=== PATIENT | female | born 1980 | race Caucasian/White ===

== ENCOUNTER 2017-10-30 14:23 | Emergency (ER) | payer SELFPAY ==
[~2017-10-30] VITALS: Ht 175.3 cm; Wt 72.6 kg
[2017-10-30] MEDS ORDERED: TRAMADOL HCL 50 MG TAB PO ONE (15:15)
[2017-10-30] MEDS ORDERED: CYCLOBENZAPRINE HCL 10 MG TAB PO ONE (15:15)
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
== END 2017-10-30 18:33 | disposition home or self-care (01) ==
LOC: ER 14:23
DX: M54.2 Cervicalgia (principal); S16.1XXA Strain of muscle, fascia and tendon at neck level, initial encounter; M54.5 Low back pain; S50.12XA Contusion of left forearm, initial encounter; S50.812A Abrasion of left forearm, initial encounter; V43.52XA Car driver injured in collision with other type car in traffic accident, initial encounter; Y92.488 Other paved roadways as the place of occurrence of the external cause
CPT/HCPCS: 70450; 71046; 72100; 72125; 81025; 99283